=== PATIENT | male | born 2000 | race Two or more races ===

== ENCOUNTER 2023-10-05 11:20 | Outpatient (CLI) | payer BC, SELFPAY ==
--- NOTE | ~2023-10-05 | US_ITS ---
EXAMINATION: US thyroid DATE: 10/05/2023 11:38 INDICATION: Enlarged thyroid. TECHNIQUE: Multiple ultrasound images of the thyroid were obtained. COMPARISON: None. FINDINGS: The right thyroid lobe measures 5.1 x 1.3 x 1.6 cm. The left thyroid lobe measures 3.6 x 1.1 x 1.8 c m. The isthmus measures 3 mm. There is normal echotexture and echogenicity throughout the thyroid gla nd. No discrete nodules identified. Normal vascular flow is present. IMPRESSION: Normal thyroid ultrasound findings. Reviewed, dictated and finalized at location K.
== END 2023-10-05 11:21 ==
PROVIDERS: PCP Family Medicine
DX: E07.89 Other specified disorders of thyroid (principal)
CPT/HCPCS: 76536